=== PATIENT | female | born 1950 | race Hispanic/Latino ===

== ENCOUNTER 2016-09-28 12:29 | Outpatient (CLI) | payer OTHER ==
--- NOTE | 2016-09-28 12:55 | XRay Report ---
CHEST 2 VIEWS INDICATION: Bronchitis, wheezing. COMPARISON: None similar at this institution. FINDINGS: PA and lateral chest radiographs demonstrate normal cardiomediastinal silhouette. Clear lungs. Slight aortic knob calcifications. Possible osteopenia and mild thoracic spondylosis. CONCLUSION: No acute disease in the chest. Thank you for the opportunity to participate in this patient's care.
== END 2016-09-28 12:30 | disposition home or self-care (01) ==
LOC: XRAY 12:29
PROVIDERS: ATTEND Internal Medicine
DX: J20.9 Acute bronchitis, unspecified (principal); I70.0 Atherosclerosis of aorta; M47.894 Other spondylosis, thoracic region
CPT/HCPCS: 71020

== ENCOUNTER 2019-01-18 09:12 | Outpatient (CLI) | payer MEDICARE ==
[2019-01-18 11:08] LABS: Chol/HDL Ratio 3.7 %
== END 2019-01-18 09:13 | disposition home or self-care (01) ==
LOC: LAB 09:12
PROVIDERS: ATTEND Internal Medicine
DX: E78.2 Mixed hyperlipidemia (principal); I10 Essential (primary) hypertension; R73.03 Prediabetes
CPT/HCPCS: 36415; 80061; 83036

== ENCOUNTER 2019-07-22 13:06 | Outpatient (CLI) | payer MEDICARE ==
[2019-07-22 13:36] LABS: Chol/HDL Ratio 6.11 %
[2019-07-27 14:17] LABS: Vitamin D, 25-OH, D2 <4 ng/mL
== END 2019-07-22 13:07 | disposition home or self-care (01) ==
LOC: LAB 13:06
PROVIDERS: ATTEND Internal Medicine
DX: R73.03 Prediabetes (principal); E78.2 Mixed hyperlipidemia; E55.9 Vitamin D deficiency, unspecified
CPT/HCPCS: 36415; 80061; 82306; 83036

== ENCOUNTER 2020-08-11 09:26 | Outpatient (CLI) | payer MEDICARE ==
[2020-08-11 10:54] LABS: Chol/HDL Ratio 3.26 %
== END 2020-08-11 09:27 | disposition home or self-care (01) ==
LOC: LAB 09:26
PROVIDERS: ATTEND Internal Medicine
DX: R73.03 Prediabetes (principal); E78.2 Mixed hyperlipidemia
CPT/HCPCS: 36415; 80061; 83036